=== PATIENT | female | born 1970 | race Caucasian/White ===

== ENCOUNTER → 2023-06-11 07:06 | Outpatient (REF) | payer BC, SELFPAY | LOC: HWRAD 07:06 | PROVIDERS: ATTENDING PHYSICIAN Family Medicine | DX: R22.9 Localized swelling, mass and lump, unspecified (principal) | CPT/HCPCS: 76604 ==

== ENCOUNTER → 2023-08-19 08:44 | Outpatient (REF) | payer BC, SELFPAY | LOC: WDC 08:44 | PROVIDERS: ATTENDING PHYSICIAN Family Medicine | DX: Z12.31 Encounter for screening mammogram for malignant neoplasm of breast (principal) | CPT/HCPCS: 77063; 77067 ==

== ENCOUNTER 2024-11-07 13:09 | Emergency (ER) | payer BC, SELFPAY ==
[2024-11-07 13:12] VITALS: BP 128/102
--- NOTE | 2024-11-07 15:32 | ED.GENMED ---
History of Present Illness
General
Chief Complaint: Facial Problem
Source: patient
Exam Limitations: none
Time Seen by Provider: 11/07/24 15:12
History of Present Illness
History of Present Illness:
54yoF with no significant past medical history presenting for evaluation of a rash. Symptoms initially began about 3 days ago with a red itchy rash around her left eye. The rash then spread to the right periorbital region. The rash has now spread
to the entire face and she noticed some crusting today as well as some bumps on her right finger. She went to urgent care at symptom onset and was started on a prednisone taper. She only took 2 days of 40mg prednisone and stopped this because she
did not feel it was helping. She denies any new products, recent antibiotic use, excessive sun exposure, or exposure to similar rash. She is otherwise asymptomatic and denies any fevers, vomiting, diarrhea, shortness of breath, dysphagia. Of
note, patient had a similar rash a few years ago.
Past History
Past History
ED Past Medical History: None, Other and Other
ED Past Surgical History: Other
Social History
Tobacco: Non-smoker
Personal:
Living: with family
Phy Exam
General Physical Exam
General Presentation: well appearing and no apparent distress
General Skin: warm and dry
General Habitus: normal
General Mental: alert
ENT Exam
ENT Exam: normocephalic and other (Facial erythema/edema noted with honey colored crusting around to the R perioral area. No skin sloughing. No lip swelling or blistering. No lesions to oral mucosa.)
Eye Exam
Eye Exam: PERRL and conjunctiva normal
Pulmonary Exam
Pulmonary Exam: lungs clear, no respiratory distress, no rales, no crackles, no rhonchi and no wheezing
Neurological Exam
Neurological Exam: alert
Joann Coma Scale
Eye Opening: Spontaneous
Verbal Response: Oriented
Motor Response: Obeys Commands
GCS Total Score: 15
Skin Exam
Skin Exam: warm/dry
Psychiatric Exam
Psychiatric Exam: normal mood/affect
Course
Orders/Labs/Results
Orders:
Orders
11/07/24 15:35
0.9% Sodium Chloride 1000 ml [Nss] 1,000 ml IV BOLUS
Dexamethasone Sod Phosphate [Decadron] 10 mg IV NOW STA
Diphenhydramine [Benadryl] 25 mg IV NOW STA
Famotidine [Pepcid] 20 mg IV NOW STA
Vital Signs
Initial and Last Documented VS:
Initial Vital Signs
Temp Pulse Resp BP Pulse Ox
98.3 F 118 16 128/102 99
11/07/24 13:12 11/07/24 13:12 11/07/24 13:12 11/07/24 13:12 11/07/24 13:12
Last Documented Vital Signs
Temp Pulse Resp BP Pulse Ox
98.3 F 84 20 121/71 100
11/07/24 13:12 11/07/24 16:44 11/07/24 16:44 11/07/24 17:15 11/07/24 16:44
MDM/Problems Addressed
Differential Diagnosis Includes:
54yoF here with a facial rash x 3 days. Dx with contact dermatitis at and started on prednisone. Symptoms now worse. No f/c or systemic symptoms. No new exposures. HR 118 in triage. Remainder of vitals are stable. There is facial erythema/edema
noted with crusting to perioral region. No involvement of oral mucosa and conjunctiva are clear. No skin sloughing. Differential diagnosis includes: Contact dermatitis, impetigo, no evidence of SJS
Patient given IV Decadron, Benadryl, and Pepcid while in emergency department. Symptoms overall stable on reassessment. Will cover with Keflex for possible superimposed impetigo given honey colored crusting on exam. She was advised to continue
the steroid taper as she stopped taking this 2 days ago. Patient advised to follow-up with her PCP and dermatology. ED return precautions reviewed. Patient discharged in stable condition.
*Pulse Oximetry
SaO2: 99
Oxygen Mode of Delivery: Room air
Patient hypoxic: no (99%)
*Critical Care Note
Total Time (30-74mins, 75-104mins- exclusive of procedures): Not Applicable
ED Attending Note
-
Portions of this chart may have been created with voice recognition software.� Occasional wrong word or��sound alike� substitutions may have occurred due to the inherent limitations of voice recognition software.
Discharge Plan
Departure
Patient Disposition: Home (Routine Discharge)
Date of Disposition: 11/07/24
Time of Disposition: 17:06
Patient with high blood pressure during this ER visit?: Yes
Discharge Problem:
Facial rash
Instructions: Skin rash - ED discharge instructions
Prescriptions:
New
cephalexin 500 mg capsule
500 mg PO Q6H 7 Days Qty: 28 0RF
No Action
ibuprofen 800 MG tablet
800 mg PO PRN PRN (Reason: pain)
oxycodone-acetaminophen 5 MG/325 MG tablet
1 - 2 tab PO Q3HPRN PRN (Reason: moderate pain) Qty: 30 0RF
docusate sodium 100 MG capsule
100 mg PO BID Qty: 0 0RF
Referrals:
NONE,* [Family Provider, Internal Medicine]
Medhat Huitron MD [Active, Dermatology]
Activity Restrictions/Additional Instructions:
Continue taking prednisone. Take Keflex as prescribed.
Please call tomorrow to schedule a follow-up with dermatology and your family doctor. Return to the ER with any worsening symptoms including fevers or trouble breathing/swallowing.
Interventions
Interventions:
*Risk Screen - Suicide Last Done: 11/07/24 13:14
*General Assessment Last Done: 11/07/24 14:28
*Neglect/Abuse Screening Last Done: 11/07/24 14:28
*ED- Fall Risk Assessment Last Done: 11/07/24 14:28
*ED COVID-19 Vaccine History Last Done: 11/07/24 14:28
*Nursing Disposition Last Done: 11/07/24 17:15
ED- Neurological Assessment Last Done: 11/07/24 14:28
ED-Skin Assessment Last Done: 11/07/24 14:28
Discharge Date and Time
Discharge Date/Time: 11/07/24 17:16
Print Language: IRANIAN
[2024-11-07] MEDS: NSS 1000 IV (15:50)
[2024-11-07] MEDS: BENADRYL 25 MG IV (15:51)
[2024-11-07] MEDS: DECADRON 10 MG IV (15:51)
[2024-11-07] MEDS: PEPCID 20 MG IV (15:51)
[2024-11-07 17:15] VITALS: BP 121/71
== END 2024-11-07 17:16 | disposition home or self-care (01) ==
LOC: EMR 13:09
PROVIDERS: EMERGENCY PHYSICIAN Student in an Organized Health Care Education/Training Program
DX: R21 Rash and other nonspecific skin eruption (principal); L53.9 Erythematous condition, unspecified; R60.0 Localized edema
CPT/HCPCS: 99284; 96374; 96375; 96361